=== PATIENT | male | born 1995 | race Hispanic/Latino ===

== ENCOUNTER 2018-10-20 02:59 | Emergency (ER) | payer OTHER ==
[2018-10-20 04:15] LABS: Absolute Lymphocytes (CBC) 2.9 K/uL (0.7-4.9); Absolute Monocytes 0.7 K/uL (0.1-1.3); Basophils % 0.2 % (0-1.3); Eosinophils % 1.9 % (0-4.4); Hematocrit 42.6 % (39.6-49.0); Lymphocytes % 32.7 % (15.3-44.8); MPV 7.5 fL (7.6-11.3); Monocytes % 8.3 % (3.3-12.3); RBC Red Blood Cell Count 4.81 M/uL (4.33-5.43)
[2018-10-20] MEDS ORDERED: CLINDAMYCIN 900MG/D5W 900 MG/50 ML IVPB IV ONE (04:21)
[2018-10-20] MEDS ORDERED: DEXAMETHASONE 10 MG/ML VIAL ONE (04:21)
[2018-10-20] MEDS ORDERED: NA CHLORIDE 0.9% 1,000 ML ONE (04:21)
[2018-10-20] MEDS ORDERED: PEN G BENZ LA 1.2MU/2ML SYRINGE IM ONE (04:22)
[2018-10-20 04:32] LABS: Bilirubin Total 0.2 mg/dL (0.2-1.0); Protein, Total 7.7 g/dL (6.4-8.2)
--- NOTE | 2018-10-20 04:51 | ER ---
Nurse's Notes [facility] Name: Rashaun Jimenez Age: 22 yrs Sex: Male : 1995 Arrival Date: 10/20/2018 Time: 03:03 Bed 8 Private MD: Diagnosis: Cough;Acute tonsillitis Presentation: 10/20 03:20 Presenting complaint: Patient states: I have had a painful cough for about 2 weeks and ed1 tonight it got really bad. Also, my throat is sore.". Transition of care: patient was not received from another setting of care. Onset of symptoms was October 06, 2018. Risk Assessment: Do you want to hurt yourself or someone else? Patient reports no desire to harm self or others. Initial Sepsis Screen: Does the patient meet any 2 criteria? No. Patient's initial sepsis screen is negative. Does the patient have a suspected source of infection? No. Patient's initial sepsis screen is negative. Care prior to arrival: Medication(s) given: DayQuil/NyQuil. 03:20 Method Of Arrival: Ambulatory ed1 03:34 Acuity: LISA 4 bb Triage Assessment: 03:22 General: Appears uncomfortable, Behavior is calm, cooperative. Pain: Complains of pain ed1 in chest Pain does not radiate. Pain currently is 9 out of 10 on a pain scale. Quality of pain is described as aching, Pain began 2 weeks. EENT: Throat is reddened has enlarged tonsils bilaterally. Neuro: Level of Consciousness is awake, alert, obeys commands, Oriented to person, place, time, situation. Cardiovascular: Denies chest pain, Heart tones S1 S2 present Capillary refill < 3 seconds in bilateral fingers. Respiratory: Reports cough that is non-productive, Airway is patent Respiratory effort is even, unlabored, Respiratory pattern is regular, symmetrical, Breath sounds are clear bilaterally. GI: Patient currently denies diarrhea, nausea, vomiting. : No signs and/or symptoms were reported regarding the genitourinary system. Derm: Skin is intact, is healthy with good turgor, Skin is dry, Skin is normal, Skin temperature is warm. Musculoskeletal: Circulation, motion, and sensation intact. Capillary refill < 3 seconds, in bilateral fingers. Range of motion: intact in all extremities. Historical: - Allergies: 03:22 No Known Allergies; ed1 - Home Meds: 03:22 None [Active]; ed1 - PMHx: 03:22 None; ed1 - PSHx: 03:22 None; ed1 - Immunization history:: Adult Immunizations up to date. - Social history:: Smoking status: Patient/guardian denies using tobacco. - Ebola Screening: : Patient negative for fever greater than or equal to 101.5 degrees Fahrenheit, and additional compatible Ebola Virus Disease symptoms Patient denies exposure to infectious person Patient denies travel to an Ebola-affected area in the 21 days before illness onset No symptoms or risks identified at this time. - Family history:: not pertinent. Screenin:25 Abuse screen: Denies threats or abuse. Denies injuries from another. Nutritional ed1 screening: No deficits noted. Tuberculosis screening: No symptoms or risk factors identified. Fall Risk None identified. Assessment: 03:25 General: See triage assessment. Respiratory: Reports cough that is non-productive, ed1 hacking, persistent Airway is patent Respiratory effort is even, unlabored, Respiratory pattern is regular, symmetrical, Breath sounds are clear bilaterally. 04:30 Reassessment: Patient appears in no apparent distress at this time. No changes from ed1 previously documented assessment. Patient and/or family updated on plan of care and expected duration. Pain level reassessed. Patient is alert, oriented x 3, equal unlabored respirations, skin warm/dry/pink. Patient states symptoms have not improved. 04:38 Reassessment: I agree with the above assessment. bb 05:12 Reassessment: Patient appears in no apparent distress at this time. Patient and/or ed1 family updated on plan of care and expected duration. Pain level reassessed. Patient is alert, oriented x 3, equal unlabored respirations, skin warm/dry/pink. Patient states feeling better. Patient states symptoms have improved. Vital Signs: 03:11 BP 137 / 87; Pulse 56; Resp 21; Temp 98.1; Pulse Ox 98% ; Weight 72.57 kg; Height 5 ft. ms 6 in. (167.64 cm); Pain 9/10; 04:30 BP 117 / 78; Pulse 97; Resp 18; Temp 98.4(O); Pulse Ox 99% on R/A; Pain 9/10; ed1 05:12 BP 113 / 71; Pulse 69; Resp 16; Temp 99.0(O); Pulse Ox 100% on R/A; Pain 4/10; ed1 03:11 Body Mass Index 25.82 (72.57 kg, 167.64 cm) ms ED Course: 03:03 Patient arrived in ED. es 03:22 Arm band placed on left wrist. ed1 03:25 Patient has correct armband on for positive identification. Bed in low position. Call ed1 light in reach. Adult w/ patient. Pulse ox on. NIBP on. 03:26 Kwasi Osorio MD is Attending Physician. jessica 03:34 Triage completed. bb 04:06 Inserted saline lock: 20 gauge in right antecubital area, using aseptic technique. ed1 Blood collected. 04:24 X-ray completed. Portable x-ray completed in exam room. Patient tolerated procedure sg4 well. 04:25 Chest Single View XRAY In Process Unspecified. EDMS 04:50 Jaylin Rajan MD is Referral Physician. jessica 05:12 No provider procedures requiring assistance completed. IV discontinued, intact, ed1 bleeding controlled, No redness/swelling at site. Pressure dressing applied. Administered Medications: 04:18 Drug: Decadron - Dexamethasone 10 mg Route: IVP; Site: right antecubital; bb 04:49 Follow up: Response: No adverse reaction ed1 04:20 Drug: Clindamycin 900 mg Route: IVPB; Infused Over: 30 mins; Site: right antecubital; ed1 04:50 Follow up: Response: No adverse reaction; IV Status: Completed infusion ed1 04:21 Drug: NS 0.9% 1000 ml Route: IV; Rate: 1 bolus; Site: right antecubital; ed1 05:13 Follow up: IV Status: Completed infusion; IV Intake: 1000ml ed1 04:50 Drug: Bicillin L-A 1.2 million units Route: IM; Site: left ventrogluteal; ed1 05:13 Follow up: Response: No adverse reaction ed1 Intake: 05:13 IV: 1000ml; Total: 1000ml. ed1 Outcome: 04:50 Discharge ordered by . jessica 05:12 Discharged to home ambulatory. ed1 05:12 Condition: good 05:12 Discharge instructions given to patient, Instructed on discharge instructions, follow up and referral plans. medication usage, Demonstrated understanding of instructions, follow-up care, medications, Prescriptions given X 1. 05:14 Patient left the ED. ed1 Signatures: Dispatcher [employer] EDKwasi Camacho, MD MD jessica Kent, Betsy Medina RN RN bb Solis, Maria ms Riggs, Erika, PASTRY FINISHER PASTRY FINISHER ed1 Shanon Garcia4
--- NOTE | 2018-10-20 04:51 | EDPHYS ---
Physician Documentation [facility] Name: Rashaun Jimenez Age: 22 yrs Sex: Male : 1995 Arrival Date: 10/20/2018 Time: 03:03 Bed 8 Private MD: ED Physician Kwasi Osorio HPI: 10/20 03:40 This 22 yrs old Male presents to ER via Ambulatory with complaints of Cough, jessica Chest Congestion, Fever, Sore Throat. 03:40 The patient or guardian reports cough. Severity of symptoms: At their worst the jessica symptoms were mild, moderate, in the emergency department the symptoms are unchanged. Historical: - Allergies: 03:22 No Known Allergies; ed1 - Home Meds: 03:22 None [Active]; ed1 - PMHx: 03:22 None; ed1 - PSHx: 03:22 None; ed1 - Immunization history:: Adult Immunizations up to date. - Social history:: Smoking status: Patient/guardian denies using tobacco. - Ebola Screening: : Patient negative for fever greater than or equal to 101.5 degrees Fahrenheit, and additional compatible Ebola Virus Disease symptoms Patient denies exposure to infectious person Patient denies travel to an Ebola-affected area in the 21 days before illness onset No symptoms or risks identified at this time. - Family history:: not pertinent. ROS: 03:42 Eyes: Negative for injury, pain, redness, and discharge, Neck: Negative for injury, jessica pain, and swelling, Cardiovascular: Negative for chest pain, palpitations, and edema, Respiratory: Negative for shortness of breath, cough, wheezing, and pleuritic chest pain, Abdomen/GI: Negative for abdominal pain, nausea, vomiting, diarrhea, and constipation, Back: Negative for injury and pain, : Negative for injury, bleeding, discharge, and swelling, MS/Extremity: Negative for injury and deformity, Skin: Negative for injury, rash, and discoloration, Neuro: Negative for headache, weakness, numbness, tingling, and seizure. 03:42 Constitutional: Positive for fever. 03:42 ENT: Positive for rhinorrhea, sinus pain, sore throat. 03:42 Respiratory: Positive for cough, with no reported sputum. Exam: 03:42 Constitutional: This is a well developed, well nourished patient who is awake, alert, jessica and in no acute distress. Head/Face: Normocephalic, atraumatic. Eyes: Pupils equal round and reactive to light, extra-ocular motions intact. Lids and lashes normal. Conjunctiva and sclera are non-icteric and not injected. Cornea within normal limits. Periorbital areas with no swelling, redness, or edema. Neck: Trachea midline, no thyromegaly or masses palpated, and no cervical lymphadenopathy. Supple, full range of motion without nuchal rigidity, or vertebral point tenderness. No Meningismus. Chest/axilla: Normal chest wall appearance and motion. Nontender with no deformity. No lesions are appreciated. Cardiovascular: Regular rate and rhythm with a normal S1 and S2. No gallops, murmurs, or rubs. Normal PMI, no JVD. No pulse deficits. Respiratory: Lungs have equal breath sounds bilaterally, clear to auscultation and percussion. No rales, rhonchi or wheezes noted. No increased work of breathing, no retractions or nasal flaring. Abdomen/GI: Soft, non-tender, with normal bowel sounds. No distension or tympany. No guarding or rebound. No evidence of tenderness throughout. Back: No spinal tenderness. No costovertebral tenderness. Full range of motion. Male : Normal genitalia with no discharge or lesions. Skin: Warm, dry with normal turgor. Normal color with no rashes, no lesions, and no evidence of cellulitis. MS/ Extremity: Pulses equal, no cyanosis. Neurovascular intact. Full, normal range of motion. Neuro: Awake and alert, GCS 15, oriented to person, place, time, and situation. Cranial nerves II-XII grossly intact. Motor strength 5/5 in all extremities. Sensory grossly intact. Cerebellar exam normal. Normal gait. Psych: Awake, alert, with orientation to person, place and time. Behavior, mood, and affect are within normal limits. 03:42 ENT: Posterior pharynx: Tonsils: bilaterally enlarged, with erythema, Uvula: normal, midline, edematous, erythema, swelling, that is mild, erythema, that is mild, exudate, is not appreciated. Vital Signs: 03:11 BP 137 / 87; Pulse 56; Resp 21; Temp 98.1; Pulse Ox 98% ; Weight 72.57 kg; Height 5 ft. ms 6 in. (167.64 cm); Pain 9/10; 04:30 BP 117 / 78; Pulse 97; Resp 18; Temp 98.4(O); Pulse Ox 99% on R/A; Pain 9/10; ed1 05:12 BP 113 / 71; Pulse 69; Resp 16; Temp 99.0(O); Pulse Ox 100% on R/A; Pain 4/10; ed1 03:11 Body Mass Index 25.82 (72.57 kg, 167.64 cm) ms MDM: 03:26 Patient medically screened. [facility] 03:46 Data reviewed: vital signs, nurses notes, lab test result(s), radiologic studies, plain jessica films. 10/20 03:12 Order name: Strep; Complete Time: 04:49 ms 10/20 03:40 Order name: CBC with Diff; Complete Time: 04:49 [facility] 10/20 03:40 Order name: Comprehensive Metabolic Panel; Complete Time: 04:49 [facility] 10/20 03:40 Order name: Chest Single View XRAY [facility] 10/20 03:49 Order name: Throat Culture EDMS Administered Medications: 04:18 Drug: Decadron - Dexamethasone 10 mg Route: IVP; Site: right antecubital; bb 04:49 Follow up: Response: No adverse reaction ed1 04:20 Drug: Clindamycin 900 mg Route: IVPB; Infused Over: 30 mins; Site: right antecubital; ed1 04:50 Follow up: Response: No adverse reaction; IV Status: Completed infusion ed1 04:21 Drug: NS 0.9% 1000 ml Route: IV; Rate: 1 bolus; Site: right antecubital; ed1 05:13 Follow up: IV Status: Completed infusion; IV Intake: 1000ml ed1 04:50 Drug: Bicillin L-A 1.2 million units Route: IM; Site: left ventrogluteal; ed1 05:13 Follow up: Response: No adverse reaction ed1 Disposition: 10/20/18 04:50 Discharged to Home. Impression: Cough, Acute tonsillitis. - Condition is Stable. - Discharge Instructions: Fever, Adult, Tonsillitis, Tonsillitis, [id number], Cough, Adult, [id number], Cough, Adult, Fever, Adult, [id number]. - Prescriptions for Clindamycin HCl 300 mg Oral Capsule - take 1 capsule by ORAL route every 6 hours for 10 days; 28 capsule. - Medication Reconciliation Form, Thank You Letter, Antibiotic Education, Prescription Opioid Use, Work release form form. - Follow up: Private Physician; When: 2 - 3 days; Reason: Recheck today's complaints, Continuance of care, Re-evaluation by your physician. Follow up: Jaylin Rajan; When: 2 - 3 days; Reason: Recheck today's complaints, Continuance of care, Re-evaluation by your physician. - Problem is new. - Symptoms have improved. Signatures: Dispatcher [employer] EDMS Kwasi Osorio MD MD cha Ballard, Brenda, TRINH RN Rajni Matias LVN FULL DECATOR OPERATOR ed1 Corrections: (The following items were deleted from the chart) 05:14 04:50 10/20/2018 04:50 Discharged to Home. Impression: Cough; Acute tonsillitis. ed1 Condition is Stable. Discharge Instructions: Tonsillitis, Tonsillitis, [id number], Cough, Adult, [id number], Cough, Adult. Prescriptions for Clindamycin HCl 300 mg Oral Capsule - take 1 capsule by ORAL route every 6 hours for 10 days; 40 capsule. and Forms are Medication Reconciliation Form, Thank You Letter, Antibiotic Education, Prescription Opioid Use. Follow up: Private Physician; When: 2 - 3 days; Reason: Recheck today's complaints, Continuance of care, Re-evaluation by your physician. Follow up: Jaylin Rajan; When: 2 - 3 days; Reason: Recheck today's complaints, Continuance of care, Re-evaluation by your physician. Problem is new. Symptoms have improved. jessica
--- NOTE | 2018-10-20 11:09 | RAD REPORT ---
EXAM DESCRIPTION: RAD - Chest Single View - 10/20/2018 4:24 am CLINICAL HISTORY: Persistent, painful cough for 2 weeks COMPARISON: October 2015 TECHNIQUE: AP portable chest image was obtained 0423 hours . FINDINGS: Lung volumes are low accentuating lung markings. No acute lung parenchymal process suspect ed. Heart and vasculature are normal. No measurable pleural effusion and no pneumothorax. No acute adrien ny abnormality seen. No acute aortic findings suspected. IMPRESSION: No acute cardiopulmonary process. No suspicious interval change.
== END 2018-10-20 05:14 | disposition home or self-care (01) ==
LOC: ER 02:59
DX: J03.90 Acute tonsillitis, unspecified (principal)
CPT/HCPCS: 36415; 71045; 80053; 85025; 87070; 87081; 96365; 96372; 96375; 99284; J0561; J1100; J7030